=== PATIENT | male | born 1995 | race Caucasian/White ===

== ENCOUNTER 2024-03-12 00:37 | Emergency (ER) | payer BC ==
[~2024-03-12] VITALS: Ht 162.6 cm; Wt 87.8 kg
[2024-03-12 04:28] VITALS: BP 113/59; TEMP 97.8; O2SAT 98
[2024-03-12] MEDS: BACITRACIN OINTMENT 30GM TUBE TOP ONE (06:40)
== END 2024-03-12 06:54 | disposition home or self-care (01) ==
LOC: M ED 00:37
DX: S00.83XA Contusion of other part of head, initial encounter (principal); Y04.8XXA Assault by other bodily force, initial encounter; Y92.009 Unspecified place in unspecified non-institutional (private) residence as the place of occurrence of the external cause; Y93.89 Activity, other specified; Y99.8 Other external cause status